=== PATIENT | female | born 1990 | race Caucasian/White ===

== ENCOUNTER 2019-12-19 09:15 | Inpatient (IN) | payer OTHER ==
[~2019-12-19] VITALS: Ht 157.5 cm; Wt 78.0 kg
[~2019-12-19 09:15] MED LIST: CODACE30 PO; HYDACE5 PO; IBUP800 PO; KETO15TC TP; MEDR150I IM; MULVITMINE PO; PENVK250 PO; PENVK500 PO; PRED20 PO; PROACE100 PO; PROM25 PO; RXHYDACE PO; TRIA80TC TOP
[2019-12-19 21:18] LABS: BASOPHILS ABSOLUTE AUTO 0.06 K/mm3 (0.00-0.23); BASOPHILS PERCENT AUTO 1 % (0-2); EOSINOPHILS ABSOLUTE AUTO 0.12 K/mm3 (0.00-0.68); EOSINOPHILS PERCENT AUTO 1 % (0-6); Hematocrit 43.9 % (33.0-51.0); Hemoglobin 14.6 g/dL (11.5-16.0); IMMATURE GRAN ABSOLUTE AUTO 0.05 K/mm3 (0.00-0.10); IMMATURE GRAN PERCENT AUTO 0 % (0-1); LYMPHOCYTES ABSOLUTE AUTO 2.37 K/mm3 (0.84-5.20); LYMPHOCYTES PERCENT AUTO 19 % (21-46); MONOCYTES ABSOLUTE AUTO 0.98 K/mm3 (0.16-1.47); MONOCYTES PERCENT AUTO 8 % (4-13); Mean Corpuscular HGB 31.9 pg (26.0-34.0); Mean Corpuscular HGB Conc 33.3 g/dL (31.5-36.5); Mean Corpuscular Volume 96 fL (80-100); Mean Platelet Volume 11.5 fL (9.1-12.4); NEUTROPHILS ABSOLUTE AUTO 8.78 K/mm3 (1.96-9.15); NEUTROPHILS PERCENT AUTO 71 % (41-73); Platelet Count 144 K/mm3 (150-400); RDW Coefficient Variation 13.3 % (11.7-14.2); RDW Standard Deviation 47.3 fL (35.1-46.3); Red Blood Cell Count 4.57 M/mm3 (3.80-5.20); White Blood Cell Count 12.36 K/mm3 (4.00-11.30)
[2019-12-21 05:28] LABS: BASOPHILS ABSOLUTE AUTO 0.07 K/mm3 (0.00-0.23); BASOPHILS PERCENT AUTO 1 % (0-2); EOSINOPHILS ABSOLUTE AUTO 0.21 K/mm3 (0.00-0.68); EOSINOPHILS PERCENT AUTO 2 % (0-6); Hematocrit 35.2 % (33.0-51.0); Hemoglobin 11.6 g/dL (11.5-16.0); IMMATURE GRAN ABSOLUTE AUTO 0.09 K/mm3 (0.00-0.10); IMMATURE GRAN PERCENT AUTO 1 % (0-1); LYMPHOCYTES ABSOLUTE AUTO 2.62 K/mm3 (0.84-5.20); LYMPHOCYTES PERCENT AUTO 24 % (21-46); MONOCYTES ABSOLUTE AUTO 1.05 K/mm3 (0.16-1.47); MONOCYTES PERCENT AUTO 10 % (4-13); Mean Corpuscular Volume 97 fL (80-100); Mean Platelet Volume 11.5 fL (9.1-12.4); NEUTROPHILS ABSOLUTE AUTO 6.98 K/mm3 (1.96-9.15); NEUTROPHILS PERCENT AUTO 63 % (41-73); Platelet Count 127 K/mm3 (150-400); RDW Coefficient Variation 13.1 % (11.7-14.2); RDW Standard Deviation 46.7 fL (35.1-46.3); Red Blood Cell Count 3.62 M/mm3 (3.80-5.20); White Blood Cell Count 11.02 K/mm3 (4.00-11.30)
--- NOTE | 2019-12-21 09:34 | NUR ---
RN ROUNDED TO HELP W/ . PT IS AN EXPERIENCED MOM. STATES BREASTS ARE HURTING A LITTLE BIT. INSTRUCT/DEMO WIDENING LATCH, CORRECT POSITIONING AND NIPPLE SHAPE AFTER FEEDS. NB SUBLINGUAL FRENULUM THICK, WHEN NB EXTENDS TOUNGE THE TIP BECOMES HEART SHAPED AND ROLLS DOWN ONTO CHIN. PT WAS ABLE TO SWITCH SIDES AND LATCH NB WELL, PT STATES LATCH FEELS A LOT BETTER. PT STATES Tita THAYER CNM IS SENDING IN A PRESCRIPTION FOR [facility], RN INSTRUCTED PT IN CORRECT USE. PT AND SO LOVING W/ NB, BOTH DENY ANY FURTHER QUESTIONS OR CONCERNS.
--- NOTE | 2019-12-21 11:06 | NUR ---
DISCHARGE INSTRUCTIONS GIVEN TO PT, RE-VERBALIZED INSTRUCTIONS. DENIES ANY FURTHER QUESTIONS, BANDS MATCHED, HUGS REMOVED. WILL RETURN FOR FU APPOINTMENT IN 2 DAYS
== END 2019-12-21 10:37 | disposition home or self-care (01) | DRG 807 ==
LOC: OBS 09:15 → BC 09:15 → OBS 20:39 → BC 20:51
PROVIDERS: ADMIT Nurse Practitioner Obstetrics & Gynecology
PROC: 10907ZC Drainage of Amniotic Fluid, Therapeutic from Products of Conception, Via Natural or Artificial Opening (ICD-10-PCS; 2019-12-19)
PROC: 10E0XZZ Delivery of Products of Conception, External Approach (ICD-10-PCS; principal; 2019-12-20)
PROC: 3E0R3BZ Introduction of Anesthetic Agent into Spinal Canal, Percutaneous Approach (ICD-10-PCS; 2019-12-20)
PROC: 00HU33Z Insertion of Infusion Device into Spinal Canal, Percutaneous Approach (ICD-10-PCS; 2019-12-20)
DX: O99.334 Smoking (tobacco) complicating childbirth (principal); Z37.0 Single live birth; F17.210 Nicotine dependence, cigarettes, uncomplicated; Z3A.40 40 weeks gestation of pregnancy
CPT/HCPCS: 36415; 51702; 59025; 85025; 86850; 86870; 86900; 86901; 86905; J1885; J2001; J2210; J2270; J2550; J2590; J3010; J7120